=== PATIENT | female | born 1990 | race Hispanic/Latino ===

== ENCOUNTER 2024-12-03 13:37 | Inpatient (IN) | payer BC ==
[~2024-12-03 13:37] MED LIST: Bupivacaine/Epinephrine 0.25% 30 ML VIAL ONE
[2024-12-03 21:31] VITALS: BMI 29.2
[2024-12-03] MEDS ORDERED: Diphenoxylate HCl/Atropine Tablet PO PRN ×2 (22:20)
[2024-12-03] MEDS ORDERED: Tranexamic Acid 1,000 MG/10 ML VIAL IVP PRN (22:20)
[2024-12-03] MEDS ORDERED: HYDROcodone/Acetaminophen 5/325 mg Tablet PO PRN ×2 (22:20)
[2024-12-03] MEDS ORDERED: hydrALAZINE 20 MG/ML VIAL SLOW IVP PRN (22:20)
[2024-12-03] MEDS ORDERED: Ibuprofen 800 MG TAB PO PRN (22:20)
[2024-12-03] MEDS ORDERED: Ondansetron PF 4 MG/2 ML Vial IVP PRN (22:20)
[2024-12-03] MEDS ORDERED: Carboprost 250 MCG/ML AMP IM PRN (22:20)
[2024-12-03] MEDS ORDERED: Lidocaine 1% (PF) 30 ML VIAL SC PRN (22:20)
[2024-12-03] MEDS ORDERED: Methylergonovine 0.2 MG/ML VIAL IM PRN (22:20)
[2024-12-03] MEDS ORDERED: Acetaminophen 500 MG TAB PO PRN (22:20)
[2024-12-03] MEDS ORDERED: Oxytocin 30 units/NS 500 ML 500 ML IV SCH (22:30)
[2024-12-03 22:45] LABS: Hematocrit 34.7 % (34.9-44.5); Hemoglobin 11.5 g/dL (12.0-15.5); Mean Corpuscular Hemoglobin 33.0 pg (27.0-33.0); Mean Corpuscular Volume 99.4 fL (81.6-98.3); Platelet Count 228 10x3/uL (150-450); Red Blood Cell (RBC) Count 3.49 10x6/uL (3.90-5.03); White Blood Cell (WBC) Count 9.48 10x3/uL (3.5-10.5)
[2024-12-03 23:15] LABS: Syphilis Antibody Index 0.05 S/CO (<1.00 Non-Reactive)
[2024-12-03 23:16] LABS: Hep B Surf Ag - L&D Non-Reactive S/CO (NonReactive)
[2024-12-04] MEDS: Oxytocin 30 units/NS 500 ML 500 ML IV SCH (05:22)
[2024-12-04] MEDS: fentaNYL/Ropivacaine Epidural 100 ML ONE (08:50)
[2024-12-04] MEDS ORDERED: diphenhydrAMINE 50 MG/ML VIAL IVP PRN (09:22)
[2024-12-04] MEDS ORDERED: Ondansetron PF 4 MG/2 ML Vial IVP PRN (09:22)
[2024-12-04] MEDS ORDERED: Acetaminophen 325 MG TAB PO PRN (09:22)
[2024-12-04] MEDS ORDERED: fentaNYL 2 mcg/Ropivacaine 0.2% Epidural 100 ML CADD EPIDURAL SCH (09:30)
[2024-12-04] MEDS ORDERED: Communication Order-Pharmacy FS SCH (09:30)
[2024-12-04] MEDS ORDERED: hydrALAZINE 20 MG/ML VIAL SLOW IVP PRN (15:15)
[2024-12-04] MEDS ORDERED: Bisacodyl 10 MG SUPP PR PRN (15:15)
[2024-12-04] MEDS ORDERED: Milk Of Magnesia 30 ML UDCUP PO PRN (15:15)
[2024-12-04] MEDS ORDERED: Ibuprofen 800 MG TAB PO SCH (16:00)
[2024-12-04] MEDS: Ferrous Sulfate 325 MG TAB PO SCH (18:56)
[2024-12-04] MEDS: Ibuprofen 800 MG TAB PO SCH (20:00)
[2024-12-04] MEDS: Benzocaine-Menthol 82.5 ML CAN TOP PRN (22:28)
[2024-12-05] MEDS: Boostrix 0.5 ML (Tdap) VIAL (>/=7 yrs of age) IM ONE (04:57)
[2024-12-05 08:06] VITALS: BP 101/51; TEMP 98
== END 2024-12-05 17:16 | disposition home or self-care (01) | DRG 807 ==
LOC: CSHLD 19:47 → CSHPED 12-04 14:18
PROVIDERS: ADMIT Obstetrics & Gynecology; ATTEND Obstetrics & Gynecology
PROC: 10E0XZZ Delivery of Products of Conception, External Approach (ICD-10-PCS; principal; 2024-12-04)
PROC: 0HQ9XZZ Repair Perineum Skin, External Approach (ICD-10-PCS; 2024-12-04)
DX: O70.0 First degree perineal laceration during delivery (principal); Z37.0 Single live birth; O69.81X0 Labor and delivery complicated by cord around neck, without compression, not applicable or unspecified; Z3A.39 39 weeks gestation of pregnancy
CPT/HCPCS: 51702; 85027; 86780; 86850; 86900; 86901; 87340; J0665; J2590; J7120